=== PATIENT | male | born 1965 | race Two or more races ===

== ENCOUNTER 2024-01-23 11:47 | Emergency (ER) | payer MEDICAID, OTHER ==
[~2024-01-23] VITALS: Ht 170.2 cm; Wt 86.0 kg
[2024-01-23 13:45] VITALS: BP 114/81; PULSE 82; RESP 17; TEMP 98; O2SAT 95
[2024-01-23] MEDS ORDERED: IBUP-1456 PO (13:54)
== END 2024-01-23 13:55 | disposition home or self-care (01) ==
LOC: ER 11:47
DX: M77.8 Other enthesopathies, not elsewhere classified (principal); Z79.1 Long term (current) use of non-steroidal anti-inflammatories (NSAID)
CPT/HCPCS: 73080

== ENCOUNTER 2024-05-17 13:44 | Emergency (ER) | payer SELFPAY ==
[~2024-05-17] VITALS: Ht 170.2 cm; Wt 85.0 kg
[~2024-05-17 13:44] MED LIST: IBUP-1456 PO
[2024-05-17 14:01] VITALS: BP 136/90; PULSE 90; RESP 16; TEMP 100.3; O2SAT 96
--- NOTE | 2024-05-17 15:19 | ED.PDOC ---
Musculoskeletal HPI Comments 58 year old male presents to the ED with chief complaint of right elbow pain. Patient reports that he has been experiencing inner right elbow pain with associated swelling for the past 4 months after changing a transmission in a car. Patient denies any numbness, weakness, chest pain, dizziness, or headache. Chief Complaint: Upper Extremity Time Seen by MD: 15:16 Reviewed Notes: Nurses Notes, Medications, Allergies Allergies: Coded Allergies: NO KNOWN ALLERGIES (Unverified , 05/17/24) Home Meds Active Scripts Ibuprofen (Ibuprofen) 800 Mg Tab, 1 TAB PO TID, #30 TAB Prov:BESSIE MENDOZA 01/23/24 Information Source: Patient Mode of Arrival: Ambulatory Location: Right Extremity Location: Elbow Timing: Months Prehospital treatment: None Severity: Moderate Able to Move Extremity: Yes Bear Weight: Fully Pain: Moderate Mechanism: Twisting Circumstances: Unknown Onset of Symptoms: Spontaneous Symptoms: Swelling, Pain DVT Risk Factors: NONE Past Medical History PAST MEDICAL HISTORY: Denies Surgical History: Denies all surgeries Family History Family History: Reviewed,noncontributory to illness Social History Smoker: Non-Smoker Alcohol: Denies ETOH Use Drugs: Denies Drug Use Lives In: Home Constitutional: denies: chills, diaphoresis, fatigue, fever, malaise, sweats, weakness, others EENTM: denies: blurred vision, double vision, ear bleeding, ear discharge, ear drainage, ear pain, ear ringing, eye pain, eye redness, hearing loss, mouth angelina n, mouth swelling, nasal discharge, nose bleeding, nose congestion, nose pain, photophobia, tearing, throat pain, throat swelling, voice changes, others Respiratory: denies: cough, hemoptysis, orthopnea, SOB at rest, shortness of breath, SOB with excertion, stridor, wheezing, others Cardiovascular: denies: chest pain, dizzy spells, diaphoresis, Dyspnea on exertion, edema, irregular heart beat, left arm pain, lightheadedness, palpitations, PND, syncope, others Gastrointestinal: denies: abdomen distended, abdominal pain, blood streaked bowels, constipated, diarrhea, dysphagia, difficulty swallowing, hematemesis, melena, nausea, poor appetite, poor fluid intake, rectal bleeding, rectal pain, vomiting, others Genitourinary: denies: burning, dysuria, flank pain, frequency, hematuria, incontinence, penile discharge, penile sore, pain, testicle pain, testicle swelling, urgency, others Neurological: denies: dizziness, fainting, headache, left sided numbness, left sided weakness, numbness, paresthesia, pre-existing deficit, right sided numbness, right sided weakness, seizure, speech problems, tingling, tremors, weakness, others Musculoskeletal: reports: others (Rt inner elbow pain); denies: back pain, gout, joint pain, joint swelling, muscle pain, muscle stiffness, neck pain Integumetry: denies: bruises, change in color, change in hair/nails, dryness, laceration, lesions, lumps, rash, wounds, others Allergic/Immunocompromised: denies: Difficulty Healing, Frequent Infections, Hives, Itching, others Hematologic/Lymphatic: denies: anemia, blood clots, easy bleeding, easy bruising, swollen glands, others Endocrine: denies: excessive hunger, excessive sweating, excessive thirst, excessive urination, flushing, intolerance to cold, intolerance to heat, unexplained weight gain, unexplained weight loss, others Psychiatric: denies: anxiety, bipolar disorder, depression, hopeless, panic disorder, schizophrenia, sleepless, suicidal, others All Other Systems: Reviewed and Negative Physical Exam General Appearance: No Apparent Distress, Normal HEENT: Normal ENT Inspection, PERRL/EOMI Neck: Full Range of Motion, Non-Tender, Normal, Normal Inspection Respiratory: Chest Non-Tender, Lungs Clear, No Accessory Muscle Use, No Respiratory Distress, Normal Breath Sounds Cardiovascular: No Edema, No JVD, No Murmur, No Gallop, Normal Peripheral Pulses, Regular Rate/Rhythm Breast Exam: Deferred Gastrointestinal: No Organomegaly, Non Tender, No Pulsatile Mass, Normal Bowel Sounds, Soft Genitalia: Deferred Pelvic: Deferred Rectal: Deferred Extremities: No calf tenderness, Normal capillary refill, Normal inspection, Normal range of motion, Non-tender, No pedal edema Musculoskeletal : Location: Right Extremity Location: Elbow Apperance: Normal, Tenderness (tenderness to the right elbow) Neurologic: Alert, 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 Was a procedure done?: No Differential Diagnosis EXT Differential Diagnosis: Sprain, Strain X-Ray, Labs, Meds, VS Vital Signs Date Time Temp Pulse Resp B/P (MAP) Pulse Ox O2 Delivery O2 Flow Rate FiO2 05/17/24 14:01 100.3 90 16 136/90 (105) 96 100.3 05/17/24 14:01 100.3 90 16 136/90 (105) 96 05/17/24 14:01 Room Air 0 Time of 1ST Reevaluation: 16:16 Reevaluation 1ST: Improved Patient Education/Counseling: Diagnosis, Treatment Family Education/Counseling: No Family Present Additional Information I reviewed the following notes from patient's past medical encounters: 01/23/24 for tendinitis of right elbow The following tests were ordered, and results were reviewed by me: Rt Elbow XR I reviewed and agreed with the following test results read by other providers: Rt Elbow XR Additional Information was gathered from interviewing the following independent historians: None I discussed treatment and results with medical personnel. Departure 1 Departure Time of Disposition: 16:49 (Patient likely with tendinitis of the right elbow. We will discharge patient home with orthopedic follow up.) Impression: Primary Impression: Tendinitis of right elbow Disposition: 01 HOME / SELF CARE / HOMELESS Condition: Stable Referrals: DEBBI COHEN MD Additional Instructions: You have tendinitis of the right elbow. You referred to orthopedics. Please call for an appointment. For pain you can take the followinam: Ibuprofen 400mg with food Noon: Acetaminophen 1000mg 4pm: Ibuprofen 400mg with food 8pm: Acetaminophen 1000mg You should follow up with your regular doctor within one week to ensure you are doing better. If your symptoms worsen or you have any other concerns then please return to the ER. Discharged With: Self Critical Care Note Critical Care Time?: No Stability Stability form required: No Heart Score Heart Score: Heart Score Response (Comments) Value History N/A 0 EKG N/A 0 Age N/A 0 Risk Factors N/A 0 Troponin N/A 0 Total 0 I personally scribed for PRECIOUS MOONEY MD ([email or web address]) on 05/17/24 at 15:19. Electronically submitted by Sarthak Schmidt ([email or web address]). PRECOIUS MOONEY MD May 17, 2024 15:19
--- NOTE | 2024-05-17 15:41 | DVH ---
EXAM: XY R ELBOW 3 VIEW XRAY HISTORY: right elbow pain COMPARISON: Right elbow radiographs dated 01/23/2024. TECHNIQUE: Three views of the right elbow were performed. FINDINGS: No acute fracture or effusion are identified about the right elbow. There are mild degenerative gil ges of the ulnotrochlear joint with small marginal osteophytes present. IMPRESSION: Mild degenerative changes of the right elbow without evidence of fracture.
== END 2024-05-17 17:01 | disposition home or self-care (01) ==
LOC: ER 13:44
DX: M77.9 Enthesopathy, unspecified (principal); M25.521 Pain in right elbow
CPT/HCPCS: 73080